=== PATIENT | female | born 1955 | race Caucasian/White ===

== ENCOUNTER → 2016-10-11 | Outpatient (CLI) | payer BC ==
[~2016-10-11] MED LIST: ADVICOR; ASPCH81; FLUO20CA35 PO
--- NOTE | 2016-10-11 12:44 | MAMMOGRAPHY REPORT ---
BILATERAL DIGITAL SCREENING MAMMOGRAM TOMOSYNTHESIS WITH CAD: 10/11/2016 CLINICAL HISTORY: Routine screening. Patient has no complaints. TECHNIQUE: Breast tomosynthesis in addition to standard 2D mammography was performed. Current study was also evaluated with a Computer Aided Detection (CAD) system. COMPARISON: Comparison is made to exams dated: 10/08/2015 mammogram, 10/05/2014 mammogram, 10/01/2013 m ammogram, 09/25/2012 mammogram, 09/25/2011 mammogram, and 09/22/2010 mammogram - [facility] ter. BREAST COMPOSITION: There are scattered areas of fibroglandular density in both breasts. FINDINGS: There are scattered benign-appearing calcifications in the breasts. Stable asymmetry in t he superior right breast. No new suspicious mass, architectural distortion or cluster of microcalcif ications is seen. IMPRESSION: ACR BI-RADS CATEGORY 1: NEGATIVE There is no mammographic evidence of malignancy. A 1 year screening mammogram is recommended. The pa tient will receive written notification of the results. Approximately 10% of breast cancers are not detected with mammography. A negative mammographic report should not delay biopsy if a clinically suggestive mass is present. Karine Mcghee M.D. ay/:10/11/2016 08:12:34 Senior Payroll Manager: Cathy LAURA)(Rancho)([place]), [facility] letter sent: Normal 1/2 BI-RADS Code: ACR BI-RADS Category 1: Negative
== END | disposition home or self-care (01) ==
LOC: C.MAMM 07:32
PROVIDERS: ATTEND Obstetrics & Gynecology
DX: Z12.31 Encounter for screening mammogram for malignant neoplasm of breast (principal)

== ENCOUNTER → 2017-02-27 | Outpatient (CLI) | payer BC | END | disposition home or self-care (01) | LOC: C.PAPS 11:22 | PROVIDERS: ATTEND Obstetrics & Gynecology | DX: Z01.419 Encounter for gynecological examination (general) (routine) without abnormal findings (principal) ==

== ENCOUNTER → 2017-10-23 | Outpatient (CLI) | payer OTHER ==
--- NOTE | 2017-10-24 13:37 | MAMMOGRAPHY REPORT ---
BILATERAL DIGITAL SCREENING MAMMOGRAM TOMOSYNTHESIS WITH CAD: 10/23/2017 CLINICAL HISTORY: Routine screening. Patient has no complaints. TECHNIQUE: The study was acquired using full field digital technology and interpreted from soft copy. Breast tomosynthesis in addition to standard 2D mammography was performed. Current study was also ev aluated with a Computer Aided Detection (CAD) system. COMPARISON: Comparison is made to exams dated: 10/11/2016 mammogram, 10/08/2015 mammogram, 10/05/2014 m ammogram, 10/01/2013 mammogram, 09/25/2012 mammogram, and 09/25/2011 mammogram - [facility] nter. BREAST COMPOSITION: There are scattered areas of fibroglandular density in both breasts. FINDINGS: Benign-appearing rodlike calcifications and rim calcifications in both breasts. Stable asy mmetry in the lateral right breast. No suspicious mass, architectural distortion or cluster of microc alcifications is seen. IMPRESSION: ACR BI-RADS CATEGORY 1: NEGATIVE There is no mammographic evidence of malignancy. A 1 year screening mammogram is recommended.( 019) The patient will receive written notification of the results. Some breast cancers are not detected with mammography. A negative mammographic report should not radha y biopsy if a clinically suggestive mass is present. Karine Mcghee M.D. ay/:10/23/2017 15:42:16 Trimming Inspector: RT Kathleen(Mira)(Rancho), [facility] letter sent: Normal 1/2 BI-RADS Code: ACR BI-RADS Category 1: Negative
== END | disposition home or self-care (01) ==
LOC: C.MAMM 07:36
PROVIDERS: ATTEND Obstetrics & Gynecology
DX: Z12.31 Encounter for screening mammogram for malignant neoplasm of breast (principal)

== ENCOUNTER 2024-04-29 05:16 | Observation (INO) ==
--- NOTE | 2024-04-10 09:04 | PAT Medication Instructions ---
Medication Instructions Date of Service April 10, 2024 Home Medications aspirin 81 mg tablet,delayed release 81 mg PO DAILY atorvastatin 40 mg tablet 40 mg PO QAM irbesartan 300 mg-hydrochlorothiazide 12.5 mg tablet 1 tab PO QAM semaglutide 7 mg tablet (Rybelsus) 7 mg PO QAM trazodone 150 mg tablet 150 mg PO HS PRN Sleep albuterol sulfate 90 mcg/actuation aerosol inhaler 2 puff inhalation QID PRN sob amlodipine 5 mg tablet 5 mg PO QAM ASK your prescriber and surgeon aspirin 81 mg tablet,delayed release 81 mg PO DAILY STOP 7 days prior to surgery semaglutide 7 mg tablet (Rybelsus) 7 mg PO QAM DO NOT take the morning of surgery irbesartan 300 mg-hydrochlorothiazide 12.5 mg tablet 1 tab PO QAM Take morning of surgery With a small sip of water, OTHERWISE NOTHING TO EAT OR DRINK AFTER MIDNIGHT: atorvastatin 40 mg tablet 40 mg PO QAM albuterol sulfate 90 mcg/actuation aerosol inhaler 2 puff inhalation QID PRN sob (use if needed; please bring rescue inhaler with you to hospital day of surgery if possible) amlodipine 5 mg tablet 5 mg PO QAM Take evening before surgery trazodone 150 mg tablet 150 mg PO HS PRN Sleep (if needed) albuterol sulfate 90 mcg/actuation aerosol inhaler 2 puff inhalation QID PRN sob (if needed) Other Notes If you have any questions please call us at [phone] or [phone] or [phone] or [phone]
--- NOTE | 2024-04-11 10:27 | Anesthesiology Consultation ---
Date of Service April 11, 2024 Assessment & Plan (1) Encounter for pre-operative examination: - Check BSG DOS - Infectious disease screening: Per assessment on 04/11/24- No known recent infectious disease contacts or current infectious disease symptoms. - Patient acceptable risk for surgery pending surgeon-ordered PCP (Nathalie León PAC/PS, appt 2/3) and dental (Dr. Buddy Holliday/Lydia periodonist- already obtained per patient) preop evaluations/approval. Chart Review Chart Review: Patient seen in Pre Admission Testing Teaching & Discussion Pre-Anesthesia Teaching/Discussion Notes: Instructed NPO after midnight before surgery,except medications with 15 cc of water. Medication instructions provided according to the PAT guidelines. History Surgery Operation Date: 04/29/24 07:00 Proposed Procedures p Right Total Knee Arthroplasty, Right Knee Hardware Removal - Miah Levin MD Height/Weight Height: 5 ft 3 in Weight: 98.1 kg Allergies Allergy/AdvReac Type Severity Reaction Status Date / Time No Known Allergies Allergy Unknown Verified 04/10/24 07:47 Medications Home Medications Medication Instructions Recorded Confirmed Last Taken aspirin 81 mg tablet,delayed 81 mg PO DAILY ##0 07/16/06 04/10/24 Unknown release atorvastatin 40 mg tablet 40 mg PO QAM 03/23/23 04/10/24 Unknown irbesartan 300 1 tab PO QAM 03/23/23 04/10/24 03/23/23 mg-hydrochlorothiazide 12.5 mg tablet semaglutide 7 mg tablet (Rybelsus) 7 mg PO QAM 03/23/23 04/10/24 03/23/23 trazodone 150 mg tablet 150 mg PO HS PRN Sleep 03/23/23 04/10/24 Unknown albuterol sulfate 90 mcg/actuation 2 puff inhalation QID PRN sob 04/10/24 04/10/24 Unknown aerosol inhaler amlodipine 5 mg tablet 5 mg PO QAM 04/10/24 04/10/24 Unknown Past Medical History Medical History (Updated 04/11/24 @ 10:41 by Cintia Landers) Asthma Dyslipidemia History of COVID-19 (2020) no hosp; resolved HTN (hypertension) Pre-diabetes Seasonal allergies Exercise / Class Metabolic Activity II 4-5 Yardwork/Stairs/Walk up hill Past Surgical History Surgical History (Updated 04/11/24 @ 10:42 by Cintia Landers) History of tubal ligation Hx of ankle fusion right Hx of anterior cruciate ligament tear reconstruction right Hx of arthroscopy of shoulder right Hx of colonoscopy Hx of hysterectomy Past Anesthesia History No Hx of Anesthesia Complications and No Family Hx of Anesthesia Complications History of PONV No Hx of PONV and Hx of Motion Sickness (Occasional) Social History Smoking Status: Former smoker Do You Dip or Chew Tobacco: No Smoking End Date: Quit 25 years ago Hx Alcohol Use: Yes Alcohol type: wine alcohol intake frequency: 0-2 drinks per day (1 drink/day) Hx Substance Use: No substance use type: does not use Review of Systems Patient denies chest pain, shortness of breath, dyspnea on exertion, fever, chills, cough, wheezing, palpitations. Physical Exam Vital Signs BP 143/91 P 81 TEMP 98.0 SP02 96%RA RESP 16 Physical Full cervical extension range of motion. Full TMJ range of motion. TMD 3 finger breaths Mallampati Score II Dentition: missing molars, one crown Lungs: clear throughout to auscultation Cardiac: regular rate and rhythm, no murmurs noted Spine: normal Carotid arteries: negative bruit Extremities: no LE edema Lab Results Anesthesia Preop Results Results Anesthesia Widget: WBC 5.69 K/ul (4.8-10.8) 04/11/24 Hgb 14.2 g/dl (12.0-16.0) 04/11/24 Hct 41.3 % (37.0-47.0) 04/11/24 Plt 219 K/uL (130-400) 04/11/24 Na 137 mmol/L (136-145) 04/11/24 K 3.8 mmol/L (3.5-5.1) 04/11/24 Cl 102 mmol/L (98-107) 04/11/24 CO2 28 mmol/L (21-32) 04/11/24 BUN 18 mg/dl (6-23) 04/11/24 Creat 0.69 mg/dl (0.6-1.2) 04/11/24 Glucose Level 112 mg/dl (70-99(Fasting)) H 04/11/24 PT 10.6 Seconds (9.0-12.0) 04/11/24 PTT 25 Seconds (21-31) 04/11/24 INR 1.0 (0.9-1.1) 04/11/24 HA1c 6.1 % (4.5-5.6) H 04/11/24 Blood Type AB Positive 04/11/24 Antibody Screen NEGATIVE 04/11/24 Testing Electrocardiogram Date: 04/11/24 NSR at 70bpm. LAD. Chest X-Ray Date: 04/11/24 FINDINGS: Cardiomediastinal and hilar silhouettes are within normal limits. No pneumothorax, pleural effusion or airspace consolidation. Degenerative changes of the shoulders and spine. IMPRESSION: No acute process.
[2024-04-29] MEDS: GABAPENTIN 300 MG CAP PO SCH (06:04)
[2024-04-29] MEDS: ACETAMINOPHEN 500 MG TAB PO SCH ×2 (06:04→14:00)
[2024-04-29] MEDS: oxyCODONE HCL 10 MG TABCR (OxyCONTIN) PO SCH (06:04)
[2024-04-29] MEDS: METOCLOPRAMIDE HCL 10 MG TABLET PO SCH (06:04)
[2024-04-29] MEDS: FAMOTIDINE 20 MG TAB PO SCH (06:04)
[2024-04-29] MEDS: traMADol HCL 50 MG TABLET PO SCH (06:04)
[2024-04-29] MEDS: CeleBREX 200 MG CAP PO SCH (06:04)
[2024-04-29] MEDS: LR 60ML/HR IV SCH (06:05)
[2024-04-29] MEDS: LR 500ML BOLUS, THEN 15ML/HR IV SCH (06:05)
[2024-04-29] MEDS: dexAMETHasone**PF** 10 MG/ML VIAL IV SCH (06:05)
[2024-04-29] MEDS ORDERED: DEXAMETHASONE SOD INJ 4 MG/ML VIAL ONE (06:23)
[2024-04-29] MEDS ORDERED: BUPIVACAINE 0.5 % 5 MG/1 ML PF 10ML VIAL ONE (06:23)
[2024-04-29] MEDS ORDERED: EPINEPHrine INJ 1 MG/ML AMP ONE (06:23)
[2024-04-29] MEDS ORDERED: BUPIVACAINE 0.25% PF 30 ML VIAL ONE (06:24)
[2024-04-29] MEDS ORDERED: DexMEDEtomidine HCL IV 100 MCG/ML VIAL IV ONE (06:43)
[2024-04-29] MEDS ORDERED: MIDAZOLAM HCL 1 MG/ML 2ML VIAL ONE ×2 (06:43→07:37)
--- NOTE | 2024-04-29 06:44 | History & Physical Bridge Note ---
Date of Service April 29, 2024 History & Physical Bridge Note I have examined the patient, reviewed the History & Physical and in the interval since the performance of the History & Physical I have noted the following changes of clinical significance: no changes noted
[2024-04-29] MEDS ORDERED: PHENYLEPHRINE 100MCG/ML 5ML SYR ONE (06:45)
[2024-04-29] MEDS ORDERED: ePHEDrine sulfate 50 MG/5 ML SYR ONE (06:45)
[2024-04-29] MEDS: TRANEXAMIC ACID 1,000 MG **IV Pre-op IV SCH (06:53)
[2024-04-29] MEDS ORDERED: fentaNYL citrate PF 100 MCG/2 ML VIAL IV PRN (07:04)
[2024-04-29] MEDS ORDERED: ePHEDrine sulfate 50 MG/ML AMP IV PRN (07:04)
[2024-04-29] MEDS ORDERED: ATROPINE SULFATE 0.1 MG/ML 10ML SYR IV PRN (07:04)
[2024-04-29] MEDS ORDERED: PROMETHAZINE HCL 6.25 MG in SODIUM CHLORIDE 0.9% 50 ML IV PRN (07:04)
[2024-04-29] MEDS ORDERED: ONDANSETRON INJ 2 MG/ML 2 ML VIAL IV PRN ×2 (07:04→12:00)
[2024-04-29] MEDS: ceFAZolin 2000MG 2,000 MG/15 ML SYR IV SCH ×2 (07:14→16:12)
[2024-04-29] MEDS ORDERED: PROPOFOL IV EMULSION 10 MG/ML 20 ML VIAL IV ONE ×4 (07:21→09:59)
[2024-04-29] MEDS ORDERED: KETAMINE HCL 10MG/ML SYR ONE (07:28)
[2024-04-29] MEDS ORDERED: ONDANSETRON INJ 2 MG/ML 2 ML VIAL ONE (07:30)
[2024-04-29] MEDS ORDERED: fentaNYL citrate PF 100 MCG/2 ML VIAL ONE (08:04)
[2024-04-29] MEDS: ROPIVACAINE 0.5% HCL/PF 246 MG, Ketorolac (*for OR use only*) 30 MG, EPINEPHrine 30MG/3... INFIL SCH (08:13)
[2024-04-29] MEDS: VANCOMYCIN HCL 1000MG/20ML VIAL ONE ×2 (08:14→09:52)
[2024-04-29] MEDS ORDERED: PHENYLEPHRINE HCL 10 MG/ML VIAL ONE (08:54)
--- NOTE | 2024-04-29 10:40 | Operative Report ---
Post Operative Report Pre & Post Diagnosis Operation Date: 04/29/24 07:00 Pre-Op Diagnosis: Right Knee Degenerative Joint Disease Post-Op Diagnosis: Right Knee Degenerative Joint Disease I identified the patient and participated in the time-out.: Yes Procedure Operation Date: 04/29/24 07:00 Actual Procedures p Right Total Knee Arthroplasty, Right Knee Hardware Removal(Right) - Miah Levin MD Surgeon Miah Levin MD Slab Lifting Supervisor Sloane Parr no resident or fellow available Estimated Blood Loss 5 Findings Consistent with Post-Op Diagnosis Specimens Resected bone and soft tissue right knee Anesthesia Type MAC Spinal Regional Complications none Disposition Accompanied Patient To Recovery: No Disposition: Recovery Room Indications Manasa is 68 years old. She has a BMI of 38. She is also diabetic. She had previous right knee ACL reconstruction. She has arthritis of her knee which is refractory to nonsurgical treatment. I think that she would most predictably benefit in the long-term from a knee replacement. She has agreed to proceed with surgery Description of Procedure Informed consent. Patient identified. She identified the procedure site as the right knee. I marked with my initials. A preoperative surgical timeout was performed. A preop dose of IV antibiotics was given. TXA given. She was taken to the operating room positioned supine on the operating room table. A bump was placed under the right hip and a tourniquet on the right thigh. A padded post under the right calf. The leg was prepped and draped in usual sterile fashion. DVT prophylaxis intraoperatively with foot pumps. Postop early mobility and Eliquis. The exam under anesthesia revealed slight varus alignment no effusion and old anteromedial knee incision for ACL surgery. Range of motion 0/3/1 15-1 20. There was MCL laxity at 20 degrees knee flexion the knee was otherwise stable. Limb exsanguinated with the Esmarch. Tourniquet inflated to 275 mmHg. A midline incision was made staying approximately 7 cm lateral to the anteromedial tibial incision. The skin was incised. This was followed by a division of the subcutaneous fat superiorly and exposure of the extensor mechanism. A medial parapatellar arthrotomy was performed. The skin incisions were extended slightly proximally and distally because of skin tension and scarring later in the surgical procedure. The patella showed small osteophytes and mostly grade 3 exchange administrator the medial portion of the patella. There were osteophytes on the femur and tibia which were excised. There were large areas of grade 3 with small areas less than a centimeter in size of grade 4 change on the tibia and femur. There was a large area of grade 4 chondrosis on the superior medial trochlea. The lateral compartment was relatively normal. The medial compartment showed a significantly damaged medial meniscus with maceration and division mid body. There was an ACL graft in place which appeared to be functional although the graft position was slightly posterior on the tibia and slightly anterior on the femur. The lateral meniscus was excised. Soft tissue on the anterior aspect the distal femur was excised. The synovial reflection in the lateral gutter was resected. The retropatellar fat pad was removed. A medial release was performed. The 2 ACL screws were identified. There openings were cleared of soft tissue and bone and the screws were easily removed. The knee was flexed and the patella easily everted. Cruciate ligaments were resected and tibia was subluxated. A airline pilot flight instructor hole was drilled into the tibia just in front of and between the tibial spines. The intramedullary guide antonia would not fit and I inserted an intramedullary guide antonia followed by reaming from 7 to 9 mm in 1 mm increments. This allowed insertion of the total knee intramedullary antonia. The 3 degree block was aligned to the tibial tubercle and pinned in the place to take 10 mm off of the lateral side corresponding to 6 mm medial. The cut was in slight varus. The slope was appropriate. The guide was readjusted to the appropriate alignment bisecting the ankle joint and intersecting the second ray and repinned in the place. The cut was made and the tibia was sized to a 4. Attention was then turned to the femur where a airline pilot flight instructor hole was drilled into the distal femur followed by insertion insertion of the distal femoral cutting guide intramedullary antonia. 5 degrees right knee valgus 11 mm thick cut. This was pinned into place and the cut was made and the extension gap was a slightly a symmetric 6. I did some more medial releasing. The epicondylar axis was marked out. The distal femoral sizing guide was applied. 3 degrees right knee external rotation. Sized to a [address] and that block was applied. The flexion gap was rectangular. The anterior posterior and chamfer cuts were made. Osteophytes in the posterior medial aspect the knee were removed. There was nothing laterally. At this point there was a symmetric 8 flexion and extension gap. The box cutting guide was applied and slightly lateralized pinned into place and the box cut was made. The trial femur was applied fit well and the lug holes were drilled. Attention was turned to the tibia where the trial was aligned to the tibial tubercle pinned into place and the revision tibial stem due to body mass was prepared with the 2 reamers and the keel punch. Trialing was then performed which showed good stability and full extension. There was no significant laxity at 0 or 90 and trace MCL laxity at 20 degrees knee flexion. Attention was turned to the patella which measured 22 mm in thickness. The 32 patella was selected. The guide was set to preserve 14 mm of bone. The cut was made and the residual patellar thickness was between 13 and 14. The paddle was aligned to the knee in slight flexion and the lug holes were drilled. Patellar tracking was off with the no hands technique once the tourniquet was let down the patella tracked neutrally. The trial components were removed from the knee. Some remaining soft tissue from the ACL reconstruction was debrided from the tibia. The bony surfaces were meticulously prepared with pulsatile lavage and drying. The ACL screws were reinserted to block the external cortex but not interfere more deeply. 2 bags of Simplex P cement were mixed and then while in a doughy state smears were placed on the posterior femoral condyles as well as into the lug holes. The components were cemented into place femur tibia and then the patella. The knee was held in full extension until the cemented hardened. Once the cement had thickened the screws were removed and the tibial screw holes were bone grafted with cancellous bone graft. Prior to cementing the knee Ortho joint mix was injected into the back of the knee. While the cement was hardening the knee was irrigated and the remainder the Ortho joint mix was injected. The tourniquet let down after 117 minutes of inflation. There was no significant bleeding. The patella tracked neutrally. Trialing showed full extension trace MCL laxity 20 degrees knee flexion the knee was other symmetric otherwise symmetrically stable. The back the knee was inspected for cement removed as encountered and the final polyethylene was applied. All components were fully seated. The extensor mechanism was closed above the equator the patella with interrupted #2 FiberWire. Below the equator with running and interrupted #1 Vicryl. I half gram of vancomycin was applied and the deep tissues and 1/2 g superficially. 1 g per bag for total of 2 g of vancomycin were applied to the bone cement. The skin was closed with 0 and 2-0 Vicryl followed by murray on the skin. The leg was cleaned with wet and dry dressings and a saw sterile dressing was applied Xeroform 4 x 4's ABD soft wrap Dariusz wrap full-length and a knee immobilizer. Patient awakened from anesthesia without difficulty and taken to the recovery room in stable condition. The patellar thickness after reconstruction was 22 mm. The patella tracked neutrally. Tilden assisted flexion with extensor mechanism closed was 115 to 120 degrees. Extension was 0.She was awakened from anesthesia difficulty and taken to the recovery room in stable condition. The resected bone and soft tissue were sent for specimen. There were no complications and counts were correct blood loss is estimated to be 5 cc. At the conclusion of the operation up with the patient's family and informed of my findings. She will begin Eliquis the morning after surgery. She will rehab according to the standard total knee protocol. She may weight-bear as tolerated. Routine course of postop IV antibiotics. Components inserted were the J&J attune knee a size 4 RP revision tibial tray with a size 5 x 8 mm thick posterior stabilized polyethylene insert a 32 mm medialized patella and a size 5 right posterior stabilized femur. I attest to the content of the Intraoperative Record and any orders documented therein. Any exceptions are noted below.
--- NOTE | 2024-04-29 10:40 | Operative Report ---
Post Operative Report Pre & Post Diagnosis Operation Date: 04/29/24 07:00 Pre-Op Diagnosis: Right Knee Degenerative Joint Disease Post-Op Diagnosis: Right Knee Degenerative Joint Disease I identified the patient and participated in the time-out.: Yes Procedure Operation Date: 04/29/24 07:00 Actual Procedures p Right Total Knee Arthroplasty, Right Knee Hardware Removal(Right) - Miah Levin MD Surgeon Miah Levin M.D. Cleaning Maid Sloane Parr PA-C; no fellow or resident available Estimated Blood Loss 5 Findings Consistent with Post-Op Diagnosis Specimens bone and soft tissue right knee Anesthesia Type MAC Spinal Regional Description of Procedure Patient was taken to the operating room and placed under spinal anesthesia with a peripheral nerve block. She was given 2 g of IV Ancef for surgical prophylaxis. She was given 1 g of IV TXA for preoperative bleeding prophylaxis. She was prepped and draped in routine sterile fashion. I was present during the entire case. Please see Dr. Levin's operative report for further details regarding today's procedure. Patient was awakened and transferred the recovery room in stable condition. I attest to the content of the Intraoperative Record and any orders documented therein. Any exceptions are noted below.
--- OUTSIDE RECORDS SUMMARY | 2024-04-29 10:45 | External Medical Summary | Continuity of Care Document ---
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 Role Phone Deidra León Primary Care Physician [phone] Encounter [facility] ALYSSA [id number] Date(s): 04/16/24 - 04/16/24 [facility] [address] [facility] [address] [facility] [address] [place] [id number] Encounter Diagnosis Right knee DJD(Discharge Diagnosis) - 04/16/24 Discharge Disposition: Home or Self Care Attending Physician: RADHA Parr, Sloane Meyers Referring Physician: MD Poonam, Miah Gracia Allergies, Adverse Reactions, Alerts Substance Criticality Severity Reaction Reaction Severity Status Tree Pollen itchy eyes Active Mold itchy eyes Active Dogs itchy eyes Active Dust itchy eyes Active Grass itchy eyes Active Immunizations Given and Recorded Vaccine Date Status Refusal Reason influenza virus vaccine, inactivated 11/16/23 Arnold rded influenza virus vaccine, inactivated 11/17/21 Arnold rded influenza virus vaccine, inactivated 1 11/17/20 Re corded influenza virus vaccine, inactivated 11/26/19 Arnold rded influenza virus vaccine, inactivated 01/01/19 Arnold rded influenza virus vaccine, inactivated 12/12/17 Arnold rded influenza virus vaccine, inactivated 12/08/16 Arnold rded influenza virus vaccine, inactivated 01/26/16 Arnold rded influenza virus vaccine, inactivated 12/24/14 Arnold rded influenza virus vaccine, inactivated 12/31/13 Arnold rded influenza virus vaccine, inactivated 12/23/12 Give n influenza virus vaccine, inactivated 12/08/11 Give n RSV vaccine preF3, recombinant 01/04/23 Recorded SARS-CoV-2 (COVID-19) mRNA-vacc - [id number] 12/14/22 Recorded SARS-CoV-2 mRNA (Pfizer 12+) bivalent 07/19/22 Rec orded SARS-CoV-2 mRNA (Pfizer 12+) bivalent 07/17/22 Rec orded SARS-CoV-2 mRNA (Pfizer 12+) bivalent 2 01/22/22 R ecorded tetanus/diphtheria/pertuss, acel (Tdap) 12/26/21 G iven tetanus/diphtheria/pertuss, acel (Tdap) 12/08/11 G iven SARS-CoV-2 mRNA ([id number]) 3 07/01/21 Recorded SARS-CoV-2 (COVID-19) mRNA BNT-162b2 vax 4 12/12/20 Recorded SARS-CoV-2 (COVID-19) mRNA BNT-162b2 vax 5 05/13/20 Recorded SARS-CoV-2 (COVID-19) mRNA BNT-162b2 vax 6 04/22/20 Recorded pneumococcal 23-valent vaccine 04/14/20 Given pneumococcal 23-valent vaccine 03/31/09 Recorded zoster vaccine, inactivated 09/03/19 Recorded zoster vaccine, inactivated 04/24/19 Recorded zoster vaccine, inactivated 04/23/19 Recorded pneumococcal 13-valent vaccine 04/17/19 Recorded zoster vaccine live 03/25/14 Given tetanus toxoids-diphtheria, Td (Adult) 7 08/26/10 Recorded tetanus toxoids-diphtheria, Td (Adult) 01/14/03 Re corded 1Result Comment: felt fine 2Result Comment: 2022-05-19: Historical information-source unspecified 3Result Comment: 2021-09-07: Historical information-source unspecified 4Result Comment: 2020-12-31: Historical information-source unspecified 5Result Comment: 2020-07-21: Historical information-source unspecified 6Result Comment: 2020-07-21: Historical information-source unspecified 7Result Comment: 2019-02-19: Historical information-source unspecified Medications albuterol CFC free 90 mcg/inh MDI Start: 05/19/22 1:12:00 PM EST, 2 puff, inhaled, qid, Disp# 3 each, Refills: 3, use with spacer chamber, Note to Pharmacy: please supply a spacer, and show how to use, PRN: as needed for wheezing, Pharmacy: [facility] Start Date: 05/19/22 Status: Ordered amLODIPine 5 mg oral tablet Start: 08/17/23 3:52:00 PM EDT, 1 tab, PO, Daily, Disp# 90 tab, Refills: 3, Pharmacy: [facility] Start Date: 08/17/23 Stop Date: 08/11/24 Status: Ordered aspirin 81 mg oral tablet, disintegrating Start: 12/17/19 4:22:00 PM EDT, 1 tab, PO, q48h, Disp# 100 tab, Refills: 10, given to patient Start Date: 12/17/19 Status: Ordered atorvastatin 40 mg oral tablet Start: 02/19/23 3:01:00 PM EST, 1 tab, PO, qhs, Disp# 90 tab, Refills: 4, Pharmacy: [facility] Start Date: 02/19/23 Status: Ordered calcium citrate 950 mg (200 mg elemental calcium) oral tablet Start: 05/12/19 11:03:00 AM EST, 1 tab, PO, bid, Disp# 200 tab, Refills: 10, given to patient Start Date: 05/12/19 Stop Date: 05/16/22 Status: Ordered hydrochlorothiazide-irbesartan 12.5 mg-300 mg oral tablet Start: 12/28/23 12:58:00 PM EDT, 1 tab, PO, Daily, Disp# 90 tab, Refills: 2, Pharmacy: [facility] Start Date: 12/28/23 Status: Ordered hydroCHLOROthiazide-irbesartan 12.5 mg-300 mg oral tablet Start: 05/19/22 5:40:00 PM EST, 1 tab, PO, Daily, Disp# 90 tab, Refills: 4, Pharmacy: [facility] Start Date: 05/19/22 Status: Suspended ibuprofen 200 mg oral capsule Start: 07/12/16 8:15:00 AM EDT, 3 tab, PO, q12h, prn shoulder pain Start Date: 07/12/16 Status: Ordered levocetirizine 5 mg oral tablet Start: 09/07/21 8:26:00 AM EDT, 1 tab, PO, qPM, Disp# 100 tab, Refills: 10, other Start Date: 09/07/21 Status: Ordered multivitamin Start: 01/17/10 6:13:45 PM EDT, 1 cap, PO, Daily, Refills: 0, current medication from another provider Start Date: 01/17/10 Status: Ordered Rybelsus 7 mg oral tablet Start: 09/10/23 9:13:00 PM EDT, 1 tab, PO, Daily, Disp# 90 tab, Refills: 4, Take 30-60 min prior to first meal of the day, Note to Pharmacy: await her call to fill this until after she tries the 3 mg dose, Pharmacy: [facility] Start Date: 09/10/23 Status: Ordered traZODone 150 mg oral tablet Start: 04/13/24 9:50:00 PM EST, 1 tab, PO, qhs, Disp# 90 tab, Refills: 4, Pharmacy: [facility] Start Date: 04/13/24 Status: Ordered Vitamin D3 2000 intl units (50 mcg) oral capsule Start: 05/12/19 11:01:00 AM EST, 2,000 Int_Unit =, PO, Daily, Disp# 100 cap, Refills: 4, given to patient Start Date: 05/12/19 Stop Date: 08/04/20 Status: Ordered Mental Status 04/16/24 Barriers to Learning one year None evide nt Mandatory Health Literacy Documentation Yes Health Literacy Communication Barriers N ever Primary Language Japanese Problem List Condition Confirmation Course Effective Dates Status H ealth Status Informant ALLERGIC RHINITIS, CAUSE UNSPECIFIED Confirmed Active Arthritis of shoulder region, right Confirmed Active ASTHMA Confirmed Active DEPRESSION, NOS Confirmed Active Diverticulosis Confirmed Active Family history of diabetes mellitus type II 1 Confirmed Active History of closed fracture of nasal bones Confirmed Active HISTORY OF TOBACCO USE 2 Confirmed Active HYPERTENSION. Confirmed Active LIPOPROTEIN DEFICIENCIES Confirmed Active MENOPAUSAL AND POSTMENOPAUSAL DISORDERS Confirmed Active MIXED HYPERLIPIDEMIA Confirmed Active Neck pain Confirmed Active Right knee DJD Confirmed Active Osteopenia Confirmed Active Skin lesion Confirmed Active SLEEP DISTURBANCES Confirmed Active Type 2 diabetes mellitus with nephropathy Confirmed Active Varicose vein of leg 3 Confirmed Active Weight disorder Confirmed Active 1mother 24 cig. a day; quit 2001 3left lateral Diagnosis Diagnosis Type Effective Dates Health Status Cl inical Service Informant Right knee DJD Discharge Diagnosis 04/16/24 Procedures Procedure Date Related Diagnosis Body Site Status Mammogram 1 01/17/24 Completed Colonoscopy 2, 3, 4 04/09/23 Compl eted Mammogram - screening 5 12/23/21 C ompleted Mammogram 6 12/20/20 Completed Mammogram 7 12/14/20 Completed Plain X-ray of right hip 8 03/25/20 Completed Mammogram 9 12/09/19 Completed DEXA of hip and spine 10 04/17/19 Completed Bilateral Digital Screening Mammogram Tomosynthesis with CAD 11 12/03/18 Comple alyson Colonoscopy 12, 13 03/22/18 Comple alyson PAP smear 14 02/18/18 Completed Eye examination 15 12/10/17 Comple alyson Mammogram 16 10/23/17 Completed Date of last PAP smear 17 02/27/17 Completed Mammogram 18 10/11/16 Completed External heart rate and 3-ax is accelerometer data recording from 15 to 30 days to assess changes in heart rate and to monitor motion analysis for the purposes of diagnosing nocturnal epilepsy seizure events; includes report, scanning analysis with report, 02/19/16 Completed Papanicolaou smear 19 02/08/16 Com pleted Mammogram 20, 21 10/08/15 Complete d US abdominal scan 22 02/18/[address] of abdomen and pelvis 23 02/15/15 Completed Date of last PAP test 24 01/14/15 Completed Mammogram - screening 25 10/01/13 Completed Arthroscopic shoulder decompression 05/21/13 Completed Mammogram 26 09/25/12 Completed Colonoscopy normal 27 03/10/08 Com pleted AMANDA BSO - Total abdominal hysterectomy 08/26/93 Completed arthroscopic ACL reconstruction Completed subtalar fusion Completed 1Benign 2- One 4 mm polyp at 10 cm proximal to the anus, removed with a cold biopsy forceps initially and then with a cold snare. Resected and retrieved. - Diverticulosis in the left colon. - The examination was otherwise normal on direct and retroflexion views. 3Repeat colonoscopy in 5 years for history of polyps. 4Colon polyp at 10cm, polypectomy Hyperplastic polyp 5Impression: No malignancy, 1 year screening recommened. 6impression: There is a persistent 12mm asymmetry in the slightly medial anterior left breast on CC view, with probable sonographic correlate in the 11:00 breast, 2cm from the nipple on ultrasound, that appears somewhat similar to a prior 2D digital mammogram from 2012 and no definitive srchitecural distortion persists on supplemental spot compression tomosynthesis views or on todays ultrasound. this could simply represent an island of glandular tissue with associated duct ectasia, but a short interval Follow-up left diagnostic tomosynthesis mammogram and repeat targeted ultrasound is recommended to ensure stability in 6 months 7INCOMPLETE EVAL: NEED ADDITIONAL IMAGING The 12 mm asymmetry with questionable associated architectual distortion in th eslightly medial, anterior left breast needs additional imagine evaluation. Pt will be called to schedule an appt. 8IMPRESSION: No acute fracture or dislocation. 9Impression: There is no mammographic evidence of malignancy. A 1 year screening mammogram is recommended. 1010 yr risk major: 23.7 %, Hip: 1.1% 11Impression: ACR BI RADS CATEGORY 1: Negative There is no mammographic evidence of malignancy. A 1 year screening mammogram is recommended. 12Impression: -Diverticulosis in the sigmoid colon -One 7mm polyp at the hepatic flexure, removed with a hot snare. Resected and retrieved. Clip (MR conditional) was placed. 13Hepatic flexure polyp- sessile serrated polyp. Repeat colonoscopy 5 years. 14Gynecological Results: Diagnosis: Negative for intraepithelial lesion or malignancy. 15see scanned report 16ACR BI-RADS category 1: negative There is no mammographic evidence of malignancy. A 1 year screening mammogram is recommended. 17negative for lesion or malignancy 18Impression: There is no mammographic evidence of malignancy. A 1 year screening mammogram is recommended. 19No intraepithelial lesion or malignancy. 20service date 10/08/15: There is no mammographic evidence of malignancy. A 1 year screening mammogramis recommended 21No malginancy. One year screening recommended. 22No abdominal wall hematomas 23Diverticulosis coli. No evidence for bowel obstruction or inflammatory change 24Negative intraepithelial or malignancy. Atrophy with inflammation. 25WNL 26Return in 1 year 27diverticulosis Vital Signs Most recent to oldest [Reference Range]: 1 Height 157 cm (04/16/24 1:53 PM) Patient Weight 98 kg (04/16/24 1:53 PM) Body Mass Index 39.76 kg/m2 (04/16/24 1:53 PM) Temperature [36.5-37.9 DegC] 36.4 DegC *LOW* (04/16/24 1:53 PM) Heart Rate 98 bpm (04/16/24 1:53 PM) Blood Pressure 130/70mmHg (04/16/24 1:53 PM) Cuff Pulse Pressure 60 mmHg (04/16/24 1:53 PM) Social History Social History Type Response Tobacco Former smoker, Cigar ettes, 0.4 per day. Started age 28 Years. Stopped age 44 Years. Smoking Status Never smoked cigaret alisia Sex Sex Representation Female (finding) Pre-OP H & P * RADHA Parr, Sloane R: PERFORM, MODIFY Event Display: Pre-OP H & P Authored Date: [id number] Name:JANIYA PLATA Patient Number:[id number] :1955 Date of Service:04/16/2024 Chief Complaint Right knee DJD; [facility] of Present Illness Laurence Camara presents today fora history and physical. She is scheduled to have a right total knee arthroplasty, hardware removal right knee with Dr. Levin on April 29, 2024. She has been havingright knee discomfort for the past [address] Reagan, who told her she had patellofemoral arthritis, and has had 2 rounds of Euflexxa (Most recently in early 2023) with the second set providing no relief. She has not recently had cortisone injections, most recently several years ago. She has been attending physical therapy and states thather symptoms are worsening. She identifies the medial knee as having the most pain. She has not hadan injury. She had a right knee ACL reconstruction about 24 years ago. She has had cortisone injections in her ankle and shoulder previously with no relief of her symptoms. She has tried the use of aknee sleeve. She states that she had a bad fall in early 2023 after going down steps outdoors, and broke her nose. She has screws in the knee and foot. She has been taking Rybelsus for diabetes progression prevention. She had x-rays of her right knee which showsosteophytes,screws in the femur and tibia with medial joint space narrowing and varus alignment. She also had an MRI most recently January 2024which showsan effusion as well asevidenceof previous ACL surgery, mildly arthritic. Degenerative changesin the meniscusespecially in the medial compartment. She also has significant loss of cartilage both medial and lateral sides of the knee with large osteophytes and degenerative meniscal pathologymedial worse than lateral. Due to these findings and failure of conservative treatmentsurgical intervention was recommended. She agrees to proceed with surgery. Review of Systems Denies any recent cough, cold, fevers, chills or flulike symptoms. She denies any lightheadedness, dizziness, syncopal episodes, headaches, migraines or seizures. Denies any bleeding or clotting disorders or history of DVT or pulmonary embolism. Denies any recent hospitalizations. Denies any history of metal sensitivity, latex allergy or MRSA. Denies any shortness of breath or chest pain. Denies abdominal pain, heartburn, indigestion, nausea, vomiting, diarrhea or constipation. Denies any urinary tract infections. Denies any hearing or vision changes. Denies any dental problems. Physical Exam Vitals:Last Updated 04/16/24 13:53 Date Temp BP Location Pulse RR SpO2 Pain 04/16/24 36.4 130/70 98 97 04/16/24 4 02/25/24 3 Height and Weight:Last Updated 04/16/24 13:53 Date BMI Wt(kg) Wt(lb) Method Ht(cm) (ft-in) Method 04/16/24 39.76 98 216 Standing Scale 157 5-2 02/20/24 96.1 211 Standing Scale 11/21/23 37.19 95.8 211 Standing Scale 160.5 5-3 Standing General:Well-dressed, well-nourished. Normal mood and affect. Alert and oriented x3. HEENT:Head: Atraumatic, normocephalic. Eyes: Extraocular movements intact, pupils equal round and reactive to light, sclera normal. Ears: Ears grossly normal, TMs are clear normal light reflex.Nose: Nares are patent bilaterally. Throat: Oropharynx clear mucous membranes moist good dentition uvula midline. Neck:Supple, no lymphadenopathy, nontender palpation, full range of motion. Cardiac:Regular rate and rhythm, normal S1, S2. No murmurs, rubs or gallops appreciated. Lungs:Clear to auscultation bilaterally. No adventitious sounds. No accessory muscle use. Abdomen:Soft, nontender, nondistended, normal bowel sounds heard in all 4 quadrants. Extremities: Focusing on the patient'sRIGHTlower extremity: 1+DP and1+PT pulses Knee (right) ROM: 0/ 2/ 120 SMALL effusion MEDIAL Joint line tenderness Stable to varus and valgus at 0 with no looseness TRACE Varus valgus laxity at 20 degrees of knee flexion Anteromedial tibial incision about 5cm long. Diagnostic [facility] and reviewed byme taken at [facility] show a medial osteophyte, screws in the femur and tibia, medial joint space narrowing, varus alignment. No fractures. Left knee is unremarkable. Patellofemoral compartmentshows minimal degenerative change. Bonespurs present. I reviewed an MRI of the right knee from 02/08/2024 which shows fluid in the knee and evidence of the previous ACL surgery. Mildly arthritic. Screw in place visible. The outer meniscus shows degenerative changes towards the back. PCL intact. Significant arthritis in the medial side of the knee with damage towards the meniscus. ACL reconstruction unclear. Significant loss of cartilage both medially and lateral sides of the knee with large osteophytes and degenerative meniscal pathology, medial worse than lateral . MCL and LCL intact. Chest X-ray performed April 11, 2024:Impression: No acute process. Labs: Hemoglobin A1c6.1, [id number], Potassium 3.8, Chloride 102, BUN 18, Creatinine 0.69, Glucose 112, Calcium 10.0, AST 21, ALT 19 PT 10.6, INR 1.0, PTT 25 White blood cell count: 5.69,hemoglobin 14.2, hematocrit 41.3,platelets 219 Type and screen:AB+ with a negative antibody screen Urinalysis:No growth. MRSA nasal swab: Negative Assessment/Plan 1.Right knee DJD Patient is scheduled for a right knee arthroplasty, hardware removal right kneewith Dr. Mcclellan April 29, 2024. Risks and complications of the procedure were explained to the patientand include but are not limited to infection, pain, bleeding, scarring, nerve or blood vessel damage, wound problems, weakness, stiffness, incomplete relief of symptoms, hardware failure, loosening, wear, fracture,tendon or ligament injury, blood clots, embolisms, heart attack, stroke or . All questions were answered and informed consent was obtained by Dr. Levin. She will have preadmission testing prior to surgerywhich she did complete onApril 11, 2024. She will have preoperative medical clearance with her family physician on April 22, 2024 as scheduled. She was instructed on the usage of the CHG wipes preoperatively. [facility] she will be prescribed oxycodoneand tramadolfor postoperative pain control. The [place] PDMP was checked with no issues identified. She will also be placed on Eliquis 2.5 mg p.o. twice daily for 2 to 4 weeks after surgery for DVT prophylaxis. Thiswill be prescribed at the time of discharge from the hospital. She was provided with a rolling walker prescription today to obtain preoperatively. She does have a cane to transition towhenable to depending on safety. She willgo home after surgery with plans of homehealthwith skillednursing and physical therapy. Once completed with homeservices she would like tocontinue outpatient physical therapy here in our office at [facility]. She will follow-up as scheduled with Dr. Levin for suture removal. Postoperative course was discussed. She understands and agrees with the plan. She knows to call with any further problems, questions or concerns. This chart was completed utilizing [employer] voice recognition software. Grammatical errors, random word insertions, pronoun errors, and in complete sentences are an occasional consequence of the system. Any questions or concerns about the content, text, or information contained within the body of this dictation should be addressed directly to the provider for clarification. Problem List/Past Medical History Ongoing ALLERGIC RHINITIS, CAUSE UNSPECIFIED Arthritis of shoulder region, right ASTHMA DEPRESSION, NOS Diverticulosis Family history of diabetes mellitus type II History of closed fracture of nasal bones HISTORY OF TOBACCO USE HYPERTENSION. LIPOPROTEIN DEFICIENCIES MENOPAUSAL AND POSTMENOPAUSAL DISORDERS MIXED HYPERLIPIDEMIA Neck pain Osteopenia Right knee DJD Skin lesion SLEEP DISTURBANCES Type 2 diabetes mellitus with nephropathy Varicose vein of leg Weight disorder Resolved Acute allergic conjunctivitis of both eyes BMI 38.0-38.9,adult Friction blister Greater trochanteric pain syndrome Need for Tdap vaccination PANIC DISORDER. Patella-femoral syndrome Piriformis syndrome of right side Right knee pain Right sided sciatica ROUTINE GENERAL MEDICAL EXAMINATION AT A HEALTH CARE FACILITY SIALOADENITIS TUBAL LIGATION STATUS Type 2 diabetes mellitus with hyperglycemia Procedure/Surgical History Mammogram| Service Date: 4Colonoscopy| Service Date: 04/09/2023Mammogram - screening| Service Date: 12/23/2021Mammogram| Service Date: 12/20/2020Mammogram| Service Date: 1Plain X-ray of right hip| Service Date: 03/25/2020Mammogram| Service Date: 12/09/2019DEXA of hip and spine| Service Date: 04/17/2019Bilateral Digital Screening Mammogram Tomosynthesiswith CAD| Service Date: 12/03/2018Colonoscopy| Service Date: 03/22/2018PAP smear| Service Date: 02/18/2018Eye examination| Service Date: 12/10/2017Mammogram| Service Date: 10/23/2017Date of last PAP smear| Service Date: 02/27/2017Mammogram| Service Date: 10/11/2016External heart rate and 3-axis accelerometer data recording from 15 to 30 days to assess changes in heart rate and to monitor motion analysis for the purposes of diagnosing nocturnal epilepsy seizure events; includes report, scanning analysis with report,| Service Date: 02/19/2016Papanicolaou smear| Service Date: 02/08/2016Mammogram| Service Date: 10/08/2015US abdominal scan| Service Date: 02/18/2015CT of abdomen and pelvis| Service Date: 02/15/2015Date of last PAP test| Service Date: 01/14/2015Mammogram - screening| Service Date: 10/01/2013rthroscopic shoulder decompression| Service Date: 05/21/2013Mammogram| Service Date: 09/25/2012Colonoscopy normal| Service Date: 03/10/2008TAH BSO - Total abdominal hysterectomy| Service Date: 08/26/1993arthroscopic ACL reconstructionsubtalar fusion Medications Home albuterol(albuterol CFC free 90 mcg/inh MDI), 2 puff, inhaled, qid, PRN, 3 refills amLODIPine(amLODIPine 5 mg oral tablet), 5 mg= 1 tab, PO, Daily, 3 refills aspirin(aspirin 81 mg oral tablet, disintegrating), 81 mg= 1 tab, PO, q48h, 10 refills atorvastatin(atorvastatin 40 mg oral tablet), 40 mg= 1 tab, PO, qhs, 4 refills calcium citrate(calcium citrate 950 mg (200 mg elemental calcium) oral tablet), 950 mg= 1 tab, PO, bid, 10 refills cholecalciferol(Vitamin D3 2000 intl units (50 mcg) oral capsule), 2000 Int_Unit, PO, Daily, 4 refills hydrochlorothiazide-irbesartan(hydrochlorothiazide-irbesartan 12.5 mg-300 mg oral tablet), 1 tab, PO, Daily, 2 refills ibuprofen(ibuprofen 200 mg oral capsule), 3 tab, PO, q12h levocetirizine(levocetirizine 5 mg oral tablet), 5 mg= 1 tab, PO, qPM, 10 refills multivitamin, 1 cap, PO, Daily semaglutide(Rybelsus 7 mg oral tablet), 7 mg= 1 tab, PO, Daily, 4 refills traZODone(traZODone 150 mg oral tablet), 150 mg= 1 tab, PO, qhs, 4 refills Allergies Dogsitchy eyes Dustitchy eyes Grassitchy eyes Molditchy eyes Tree Pollenitchy eyes Social History Smoking Status Never smoked cigarettes Alcohol - No Risk Use:Current Type:Wine Frequency:1-2 times per month Average drinks per episode in last year:1 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, 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 Dementia: Mother (Dx at 87 years). Diabetes: Mother. High Blood Pressure: Brother. Hip fracture: Paternal Aunt (Dx at 59 years). Hypercholesterolemia: Brother and Son. Hypertension: Mother. Osteoporosis: Mother. SMAS - Superior mesenteric artery syndrome: Daughter. Type II diabetes mellitus: Mother. Family Member(s) Relationship: Mother, Age: 90 Years Relationship: Father, Age: 70 Years, Cause: CHF, CVA Relationship: Maternal Aunt, Age: 84 Years, Cause: alzheimers, UTI/organ failure Electronic Signature on File Electronically Reviewed/Signed by: Sloane Parr PA-C Author Signature Dt/Tm:04/17/2024 09:07AM Division of Sports Medicine Electronically Reviewed/Signed by: Miah Levin MD Cosigner Signature Dt/Tm: 04/18/2024 02:46 PM Division of Sports Medicine [facility] Patient Care team information Care Team Personnel Name: RADHA León, Deidra Garcia Position: Physician Asst [place] - Family Med Member Role: Primary Care Provider Address: [address] [place] [id number] [place] Care Team Related Persons Name: ADONAY PLATA Name: ADONAY PLATA"
--- NOTE | 2024-04-29 10:56 | Anesthesiology Progress Note ---
Date of Service April 29, 2024 Anesthesia Post Procedure Vital Signs Vital Signs: Temp Pulse Pulse Resp BP Pulse Ox O2 Del Method 04/29/24 10:45 100 H 17 117/65 95 Oxymask 04/29/24 10:38 37.4 C 102 H 17 107/72 95 Oxymask 04/29/24 05:44 36.8 C 98 H 20 137/86 98 Room Air O2 Flow Rate 04/29/24 10:45 5 04/29/24 10:38 5 04/29/24 05:44 Transfer of Care Handoff Completed per policy Notes Mental Status: alert / awake / arousable Patient Amnestic to Procedure: Yes Nausea / Vomiting: adequately controlled Pain: adequately controlled Airway Patency, RR, SpO2: stable & adequate BP & HR: stable & adequate Hydration State: stable & adequate Neuraxial Anesthesia: was administered and sensory block is resolving Anesthetic Complications: no major complications apparent and Pt Satisfied with anesthetic care
--- NOTE | 2024-04-29 11:40 | XRay Report ---
XR knee RT 1 or 2V routine HISTORY: 68 years-old Female Surgical Post Op COMPARISON: Right knee MRI 02/08/2024 TECHNIQUE: 2 views of the right knee FINDINGS: Total joint arthroplasty with patellar resurfacing. Anterior midline skin murray with expected posto perative soft tissue swelling and deep tissue air. IMPRESSION: Right knee arthroplasty with expected postoperative changes. ACT 112: Negative or not required by law. The above report was generated using voice recognition software. It may contain grammatical, syntax o r spelling errors. Electronically signed by: Bob Luciano M.D. 04/29/2024 11:38 AM
[2024-04-29] MEDS ORDERED: HYDROmorphone INJ 1 MG/ML SYRINGE IV PRN (12:00)
[2024-04-29] MEDS ORDERED: oxyCODONE HCL IR 5 MG TAB (IMMEDIATE RELEASE) PO PRN (12:00)
[2024-04-29] MEDS ORDERED: NALOXONE HCL 0.4 MG/1 ML VIAL/CARP IV PRN (12:00)
[2024-04-29] MEDS ORDERED: MAGNESIUM HYDROXIDE SUSP 30 ML UDC PO PRN (12:00)
[2024-04-29] MEDS ORDERED: hydrALAZINE HCL 20 MG/ML VIAL IV PRN (12:00)
[2024-04-29] MEDS ORDERED: ALBUTEROL HFA 8 GM INHALER INH PRN (12:00)
[2024-04-29] MEDS ORDERED: PHARMACY GLYCEMIC MGMT CONSULT PRN (12:00)
[2024-04-29] MEDS ORDERED: METOCLOPRAMIDE HCL INJ 5 MG/ML 2 ML VIAL IV PRN (12:00)
[2024-04-29] MEDS ORDERED: bisacodyL 10 MG SUPP PR PRN (12:00)
[2024-04-29] MEDS ORDERED: HYDROmorphone INJ 0.5 MG/0.5 ML SYR IV PRN (12:00)
[2024-04-29] MEDS: INSULIN ASPART PER UNIT CHARGE SC SCH (12:44)
[2024-04-29] MEDS: KETOROLAC TROMETHAMINE 15 MG/ML VIAL IV SCH (12:48)
[2024-04-29] MEDS: traMADol HCL 50 MG TABLET PO PRN (14:01)
--- NOTE | 2024-04-29 14:28 | Pharmacy Report ---
Pharmacy Glycemic Short Note 2 - Date of Service April 29, 2024 - Glycemic Short BSG Results (Last 24 hours): 04/29/24 04/29/24 05:47 12:18 POC Glucose 132 H 250 H OUTPATIENT ANTIDIABETIC REGIMEN: * Rybelus 7mg PO QAM ASSESSMENT: * Manasa is a 68 YOF admitted status post right total knee arthroplasty with a history of T2DM. Pharmacy has been consulted to assist with glycemic management while inpatient. * Preoperative BSG this AM within goal range, given 10mg IV dexamethasone preoperatively, post-op BSG 250, will initiate basal insulin at 0.3 units/kg with dinner. Reassess basal in AM with 8mg PO oral dexamethasone one time order. Will add additional basal scale at bedtime up to a weight based stress of 3 * NovoLog at a weight based stress of 2.5 PLAN FOR INPATIENT GLYCEMIC CONTROL: * Hold outpatient oral diabetes medications * Basal insulin * Lantus 30 units SQ x1 * Lantus 0-25 units SQ Hs based on BSG (see eMAR for additional details) * Bolus insulin * NovoLog per scale ACHS or Q6hrs while NPO * Goal Range: Low 110 mg/dL - High 140 mg/dL * Correction Factor: 20 mg/dL/unit * Nutritional / Prandial insulin per carb ratio of 1 unit per 6 grams CHO consumed
--- NOTE | 2024-04-29 14:48 | Orthopedic Progress Note ---
Date of Service April 29, 2024 Assessment & Plan (1) S/P total knee arthroplasty: Plan: Postop day 0-status post right total knee arthroplasty with Dr. Levin. Regular diabetic diet ordered. Glycemic, control consult placed. Start physical therapy and Occupational Therapy tomorrow. Out of bed with nursing today. May weight-bear as tolerated on her right lower extremity with the assistance of a walker and a knee immobilizer. Ice and elevation as needed for pain or swelling. Will start Eliquis 2.5 mg p.o. twice daily for DVT prophylaxis tomorrow morning. This will be given for 2 to 4 weeks after surgery. Will continue AV impulse boots and CHEIKH stockings. Pain medication as prescribed. Home medications resumed. Dr. Levin present for today's visit. Will reevaluate in the morning. Plan for possible discharge to home with home health tomorrow. Admission and Anticipated Discharge Date Admission Date: April 29, 2024 Tyesha Goel is resting in bed. She states she has been out of bed to the bathroom. Overall doing well. Noticing some mild pain but controlled on Tylenol and tramadol for now. She had some lunch and denies any postoperative nausea or vomiting. Physical Exam Musculoskeletal: Exam of her right lower extremity: Postoperative dressings are clean, dry and intact. Right leg was elevated on 2 pillows and ice was applied to the right knee. She has full ankle range of motion with normal strength. Dorsalis pedis pulses 1+. Normal sensation throughout the right foot. Capillary refill is brisk. Results & Data Vital Signs (Past 12 Hours) Vital Signs Temp Pulse Pulse Resp BP BP Pulse Ox 04/29/24 13:57 36.5 C 87 17 130/80 98 04/29/24 12:49 37.0 C 86 18 158/84 H 93 04/29/24 12:15 36.8 C 88 18 109/71 92 04/29/24 11:45 36.7 C 87 19 135/89 95 04/29/24 11:20 94 H 16 113/77 95 04/29/24 11:05 37.2 C 94 H 16 112/74 95 04/29/24 10:55 98 H 18 109/71 95 04/29/24 10:45 100 H 17 117/65 95 04/29/24 10:38 37.4 C 102 H 17 107/72 95 04/29/24 05:44 36.8 C 98 H 20 137/86 98 O2 Del Method O2 Flow Rate 04/29/24 13:57 Room Air 04/29/24 12:49 Room Air 04/29/24 12:15 Room Air 04/29/24 11:45 Room Air 04/29/24 11:20 Nasal Cannula 2 04/29/24 11:05 Nasal Cannula 2 04/29/24 10:55 Oxymask 5 04/29/24 10:45 Oxymask 5 04/29/24 10:38 Oxymask 5 04/29/24 05:44 Room Air Diagnostic Findings Knee X-Ray 04/29/24 10:45 XR knee RT 1 or 2V routine HISTORY: 68 years-old Female Surgical Post Op COMPARISON: Right knee MRI 02/08/2024 TECHNIQUE: 2 views of the right knee FINDINGS: Total joint arthroplasty with patellar resurfacing. Anterior midline skin murray with expected postoperative soft tissue swelling and deep tissue air. IMPRESSION: Right knee arthroplasty with expected postoperative changes. ACT 112: Negative or not required by law. The above report was generated using voice recognition software. It may contain grammatical, syntax or spelling errors. Electronically signed by: Bob Luciano M.D. 04/29/2024 11:38 AM
[2024-04-29] MEDS: TRANEXAMIC ACID / 0.7% NACL 1,000 MG/100 ML BAG IV SCH (16:08)
[2024-04-29] MEDS: LANTUS PER UNIT CHARGE SC SCH ×2 (16:51→21:08)
[2024-04-29] MEDS ORDERED: Nursing to Pharmacy Communication SCH (21:30)
[2024-04-29] MEDS: DOCUSATE SODIUM 100 MG CAP PO SCH (21:41)
[2024-04-29] MEDS: ASPIRIN 81 MG ECTAB PO SCH (21:41)
[2024-04-29] MEDS: SENNA 8.6 MG TAB PO SCH (21:42)
[2024-04-29] MEDS: ATORVASTATIN 40 MG TAB PO SCH (21:42)
[2024-04-29] MEDS: traZODone HCL 50 MG TAB PO PRN (21:42)
[2024-04-30 07:07] LABS: Hematocrit (blood only) 31.9 % (37.0-47.0); Hemoglobin 10.9 g/dl (12.0-16.0); Mean Corpuscular Hemoglobin 31.9 pg (25.0-34.0); Mean Corpuscular Hgb Conc 34.2 g/dL (32.0-36.0); Mean Corpuscular Volume 93.3 fL (80.0-100.0); Mean Platelet Volume 9.7 fL (9.4-12.4); Platelet Count 170 K/uL (130-400); RDW Coefficient of Variation 11.7 % (11.5-14.5); RDW Standard Deviation 39.9 fL (36.4-46.3); Red Blood Count 3.42 M/uL (4.20-5.40); White Blood Count 12.25 K/ul (4.8-10.8)
[2024-04-30 07:18] VITALS: TEMP 98.4
[2024-04-30 07:18] LABS: BUN Creatinine Ratio 22.7 (10-20); Calcium 8.6 mg/dl (8.6-10.3); Creatinine Clr Calc Pharmacy 77.6 ml/min
[2024-04-30] MEDS: APIXABAN 2.5 MG TAB PO SCH (07:32)
[2024-04-30] MEDS: dexAMETHasone 4 MG TAB PO SCH (07:32)
[2024-04-30] MEDS: hydroCHLOROthiazide 25 MG TAB PO SCH (07:33)
[2024-04-30] MEDS: amLODIPine BESYLATE 5 MG TAB PO SCH (07:33)
[2024-04-30] MEDS: MULTIVITAMIN TAB PO SCH (07:33)
[2024-04-30 08:14] VITALS: RESP 14; O2SAT 95
[2024-04-30] MEDS ORDERED: ASPIRIN 81 MG ECTAB PO SCH (09:00)
[2024-04-30] MEDS ORDERED: ATORVASTATIN 40 MG TAB PO SCH (09:00)
[2024-04-30] MEDS ORDERED: NON-FORMULARY MEDICATION (Irbesartan-Hydrochlorothiazide 300-12.5 mg tablet) PO SCH (09:00)
[2024-04-30] MEDS: LOSARTAN POTASSIUM 50 MG TAB PO SCH (10:18)
--- NOTE | 2024-04-30 10:32 | Discharge Summary ---
Date of Service April 30, 2024 Discharge Data Procedures Performed Operation Date: 04/29/24 07:00 Actual Procedures p Right Total Knee Arthroplasty,(Right) - Miah Levin MD s Right Knee Hardware Removal(Right) - Miah Levin MD Hospital Course (1) S/P total knee arthroplasty: Patient was kept in observation at [facility] after undergoing an elective right total knee arthroplasty with Dr. Levin on April 29, 2024. She tolerated the procedure well with out any intraoperative complications. Her surgery was performed with spinal anesthesia and peripheral nerve block as well as IV sedation. She was given 2 g of IV Ancef for surgical prophylaxis which was continued for 24 hours after surgery. She was given 1 g of IV TXA preoperatively for bleeding prophylaxis which was repeated and another dose 6 hours after that initial dose. In the recovery room she had x-rays of her right knee which showed a stable right knees prosthesis without any evidence of hardware complication. She was allowed out of bed, weight-bear as tolerated on her right lower extremity with the assistance of a walker and a knee immobilizer. Her home medications were continued. A glycemic consult was placed for management of her diabetes while in house. Bowel regimen was also provided. She was provided Tylenol, tramadol, oxycodone, Toradol for postoperative pain control as well as IV Dilaudid. Postoperative pain was well- controlled with oral pain medications. She did have some mild drainage on the dressings which was changed on postoperative day 1. When evaluating her incision it was clean, dry and intact with no active bleeding. A new dressing was applied. She was started on Eliquis 2.5 mg p.o. twice daily on postoperative day 1 for DVT prophylaxis. This will be continued for 2 to 4 weeks after surgery. She was also provided CHEIKH stockings and AV impulse boots during her inpatient stay. She was out of bed with nursing starting on postoperative day 0 and then out of bed with physical therapy and Occupational Therapy on day 1. She was deemed safe for discharge by both the occupational and physical therapist. Case management was involved for disposition needs. Due to her being been well-controlled and her being safe out of bed she was discharged to her home in stable condition on April 30, 2024. Discharge instructions were reviewed follow-up appointments have been scheduled.
--- NOTE | 2024-04-30 10:36 | Orthopedic Progress Note ---
Date of Service April 30, 2024 Assessment & Plan (1) S/P total knee arthroplasty: Plan: Postop day 1-status post right total knee arthroplasty with Dr. Levin. Regular diabetic diet ordered. Glycemic control consult placed. PT and OT today May weight-bear as tolerated on her right lower extremity with the assistance of a walker. May discontinue the knee immobilizer. Recommended to keep at home and use as needed. Ice and elevation as needed for pain or swelling. Eliquis 2.5 mg p.o. twice daily for DVT prophylaxis Started this morning. This will be given for 2 to 4 weeks after surgery. Will continue AV impulse boots and CHEIKH stockings. Pain medication as prescribed. Home medications Continued. Dr. Levin present for today's visit. Case management for disposition needs. Plan for discharge to home today with home health if safe and PT and OT. Follow-up instructions were reviewed. Follow-up as scheduled approximately 2 weeks after surgery. Admission and Anticipated Discharge Date Admission Date: April 29, 2024 Tyesha Goel is sitting up in a chair. She has just completed physical therapy. Her nursing states that they did have to reinforce her dressings this morning due to some bloody drainage shadowing through the initial postoperative dressing. Patient denies any pain. She states that it is well-controlled with oral medications. She does feel that she is ready to go home. Denies any postoperative lightheadedness, dizziness, chest pain or shortness of breath. Has been tolerating a regular diet without any postoperative nausea or vomiting. Has not had issues urinating. She has been out of bed with nursing and her physical therapist and occupational therapist with the assistance of a walker. Physical Exam Musculoskeletal: Exam of the right lower extremity: Postoperative dressings did have dried bloody drainage on them. They were removed. Her incision is intact with retained murray. There is no underlying evidence of hematoma or seroma. No effusion in the prepatellar space. Trace effusion in the knee. At the distal aspect of the incision with light pressure there was a small drop of blood able to be expressed from the incision. She is able to independently straight leg raise. Full ankle range of motion with no distal edema. Dorsalis pedis and posterior tibial pulses are 1+. Sensation is normal through the right leg. Strength is 5/5. New dressings were applied to the right knee with Xeroform, 4 x 4's, ABD and Dariusz bandage along with her Cheikh stocking. Results & Data Vital Signs (Past 12 Hours) Vital Signs Temp Pulse Pulse Resp BP Pulse Ox O2 Del Method 04/30/24 08:11 36.9 C 70 14 118/78 95 Room Air 04/30/24 07:18 36.9 C 68 16 114/74 96 Room Air 04/30/24 03:02 36.6 C 70 18 110/74 96 Room Air 04/30/24 00:00 36.7 C 76 16 137/76 96 Room Air
[2024-04-30 10:44] VITALS: BP 109/71; PULSE 68
== END 2024-04-30 11:39 | disposition home health service (06) ==
LOC: 3E 05:16 → ASU 05:16